=== PATIENT | male | born 1950 | race Caucasian/White ===

== ENCOUNTER → 2019-09-23 17:30 | Outpatient (BNVA) | payer MEDICARE, OTHER, SELFPAY | PROVIDERS: Visit Provider Nurse Practitioner | DX: I10 Essential (primary) hypertension (principal); R53.83 Other fatigue | CPT/HCPCS: 80053; 82607; 83550; 85025 ==

== ENCOUNTER → 2019-09-27 14:56 | Outpatient (BNVA) | payer MEDICARE, OTHER, SELFPAY | PROVIDERS: Visit Provider Nurse Practitioner | DX: D64.9 Anemia, unspecified (principal) | CPT/HCPCS: 82270 ==

== ENCOUNTER 2019-10-18 08:53 | Outpatient (CLI) | payer MEDICARE, OTHER, SELFPAY ==
--- NOTE | 2019-10-18 18:53 | ONC CON_ITS ---
Dr. George New Patient Note Patient: Christiano Swartz Unit #: [id number]: 1950 Dicatated By: Christiano George M.D.Date of Visit: Oct 18, 2019 Onc MED New Patient/Consult Referring Physician: Zechariah Jara Chief Complaint: Anemia. History of Present Illness: This is a 69 year-old man with iron deficiency anemia. This patient has multiple medical illnesses including hypertension, Graves' disease, Crohn's disease, irritable bowel syndrome, and chronic migraine. He has had most of his medical care with physicians in [place], but that has recently been curtailed due to the coronavirus pandemic. He had seen Gennaro Rosales on 09/23/2019 to establish primary care locally. He reported a 2-week history of increased weakness/fatigue. He was found to be significantly anemic with hemoglobin 9.2 g and hematocrit 29.6%. The red cell indices were hypochromic/microcytic. White blood cell count was normal at 5900 and the platelet count was normal at 254,000. His comprehensive metabolic profile showed mild hyponatremia with sodium 127 mmol/L. Renal function was borderline with BUN 10 and creatinine 1.2 mg/dL. Bilirubin and liver enzymes were normal. The serum iron was low at 12 mcg/dL with transferrin saturation 2.7%. B12 was normal at 610 pg/mL. His stool Hemoccult was negative x 3. He complains that he is weak as I will get out. He has very limited activity. His ECOG score is 3. His appetite has never been great, but his weight is stable. He has not had fever or night sweats. He complains that he feels cold all the time. That is chronic, but worse lately, to the point that he is freezing to . He complains of having very dry mouth, and he drinks a lot of water because of it. He does not complain of cough, shortness of breath, or chest pain. He says he is nauseated all the time. He has just a little heartburn, which he manages with Tums. He complains that his stomachaches. His bowels used to be like water. His stools now fluctuate between semi-moist and rocks. He has not been aware of blood in the stool. He has urinary frequency and nocturia. He currently y is not having any significant joint or bone pain, but he does have a history of back injury and 2 back surgeries. He has migraines constantly, at times severe enough that they put him down. He gets lightheaded if he tries to get up too fast. He says his fingers get numb with cold exposure. He has some mild anxiety, and he has chronic insomnia. Past Medical History: His medical history includes chronic migraine, Crohn's disease, Graves disease, hypertension, and irritable bowel syndrome. Past Surgical History: His surgical/procedural history includes back surgery x 2 and subtotal thyroidectomy and radioactive iodine ablation. Medications: Atenolol 3 Tablet (of 50 mg) Oral daily, Budesonide 3 Capsule (of 3 mg) Capsule Delayed Release Particles Oral daily, Bywzszrrux-VDFG-Mvox-Cod 1 Capsule (of 36-357-58-30 mg) Oral q 4 hours PRN, Cyclobenzaprine HCl 1 Tablet (of 10 mg) Oral t.i.d. PRN, diazePAM 1 Tablet (of 5 mg) Oral t.i.d. PRN, Diphenoxylate-Atropine 1 Tablet (of 2.5-0.025 mg) Oral daily PRN, Enalapril Maleate 1 Tablet (of 20 mg) Oral daily, EQL Fluticasone Propionate 1 [place](s) (of 50 mcg/act) Suspension Nasal daily, HYDROcodone-Acetaminophen 1 Tablet (of 10-325 mg) Oral q 4 hours PRN, hydrOXYzine HCl 1 Tablet (of 25 mg) Oral t.i.d. PRN, predniSONE 1 Tablet (of 10 mg) Oral daily, ProAir HFA 2 Puff(s) (of 108 (90 base) mcg/act) Aerosol, solution Inhalation PRN, sulfaSALAzine 2 Tablet (of 500 mg) Oral daily, SUMAtriptan Succinate 1 Tablet (of 100 mg) Oral daily PRN, tiZANidine HCl 2 Tablet (of 4 mg) Oral four times a day PRN, Zofran ODT 1 Tablet (of 4 mg) Tablet Dispersable Oral q 4 hours Allergies: morphine and Penicillin. Social History: Mr. Swartz is and he is retired. He is a non-smoker. He had heavy alcohol use for period of 4 to 5 years, but he quit drinking more than 30 years ago. Family History: Father with dementia in his early 90s. Mother had diabetes and of heart attack at age 62. Her whole family apparently had heart problems. A brother in his 60s with fast pace dementia . Another brother has coronary artery disease and one has been treated for cardiac arrhythmia. A sister also has heart disease. Another sister is in good health. Review Of Symptoms: Constitutional - His energy level is low and he is mainly sedentary at home. He uses a cane with ambulation. His appetite is poor. His weight is stable. No fever. He has frequent chills. No hot flashes or night sweats. ECOG score is 3, Eyes - No change in vision, ENMT - No hearing loss or tinnitus. He has chronic sinusitis. No mouth sores. No sore throat or difficulty swallowing, Hematologic/Lymphatic - No abnormal bruising or bleeding, Respiratory - No shortness of breath. No cough. No pleuritic pain or hemoptysis, Cardiovascular - No angina pain. No palpitations, Gastrointestinal - She has constant nausea. No vomiting. He has occasional heartburn that is well controlled with over the counter Tums. He has intermitten diarrhea and constipation. He has Crohn's disease and IBS. No blood in the stool or black stools. He has constant abdominal pain, Genitourinary (M) - No dysuria or hematuria. He has urinary frequency and nocturia. No urgency or incontinence, Musculoskeletal - No joint or bone pain, Integumentary - No skin complications, Neurologic - He has chronic migraines which he manages with hydrocodone and Butalbital/APAP/Caffeine. He gets dizzy with positional changes. He has neuropathy that is worse when he gets cold, Psychiatric - He has mild anxiety. No depression. He has chronic insomnia. Vital Signs: Performed on Oct 18, 2019 09:35: 4, 22.35, 1.63 sq.m, 64.00 in, 97 %, 70 /min, 18 /min, 194/103 mm(hg) (HIGH), 98.1 F (LOW), and 130.2 lbs (HIGH). Physical Examination: Constitutional - He appears somewhat weak generally, but not acutely ill, Eyes - Sclerae nonicteric. Conjunctivae clear, ENMT - Mouth is very dry. There are no lesions noted in the oral cavity, Neck - No mass or thyromegaly, Hematologic/Lymphatic - No cervical, clavicular, or axillary adenopathy, Respiratory - Lungs are clear with good air movement bilaterally, Cardiovascular - Heart rhythm is regular. There is no murmur, gallop, or rub noted, Abdomen - Soft and non-tender. Liver and spleen are not enlarged. There is no abdominal mass or ascites noted and there is no inguinal adenopathy, Back/Spine - No spine or CVA tenderness noted, Extremities - No edema. Pedal pulses are palpable bilaterally, Integumentary - No rashes. No suspicious skin lesions noted, Neurologic - No focal neurologic deficits noted. Impression: 1. Patient with iron deficiency anemia. Etiology is uncertain, but it appears to be due to inadequate oral iron absorption. GI blood loss is not completely excluded, but it does appear to less likely. 2. He has underlying Crohn's disease and irritable bowel syndrome. 3. He also had mild hyponatremia, possibly dilutional. 4. He has chronic dry mouth. In the setting of other autoimmune disease, I am wondering if he may not have Sjogren's syndrome. His other medical illnesses include: 5. Hypertension. 6. Graves disease. 7. Chronic migraine. Plan: He clearly has iron deficiency anemia. At least some component is likely to be due to inadequate oral iron absorption. He has underlying Crohn's disease and irritable bowel syndrome and he has significant ongoing GI symptoms. While it is unlikely that he will either tolerate or respond to oral iron, he will need to be given a trial of oral iron supplementation prior to any parenteral iron replacement. As such, he will start ferrous sulfate 325 mg daily together with vitamin C. He will tentatively be scheduled for a follow-up visit and repeat CBC and serum iron studies in 1 month. If he does not tolerate the ferrous sulfate or if he does not have adequate response, I will then proceed to parenteral iron replacement with Injectafer. Signed By: Christiano George M.D. <<Signature on File>>
== END 2019-10-18 08:54 | disposition home or self-care (01) ==
PROVIDERS: PCP Nurse Practitioner; Visit Provider Internal Medicine Medical Oncology
DX: D50.9 Iron deficiency anemia, unspecified (principal); K50.90 Crohn's disease, unspecified, without complications; K58.9 Irritable bowel syndrome, unspecified; E87.1 Hypo-osmolality and hyponatremia; R68.2 Dry mouth, unspecified; I10 Essential (primary) hypertension; E05.00 Thyrotoxicosis with diffuse goiter without thyrotoxic crisis or storm; G43.709 Chronic migraine without aura, not intractable, without status migrainosus
CPT/HCPCS: 99204

== ENCOUNTER 2019-10-28 01:05 | Observation (INO) | payer MEDICARE, OTHER, SELFPAY ==
[2019-10-28] VITALS (8 sets, daily range): BP systolic 128–209; BP diastolic 66–117; PULSE 53–74; RESP 16–18; TEMP 36.8–37.1; O2SAT 96–100; BMI 20.5
--- NOTE | 2019-10-28 01:18 | W.ED.EXTPRO ---
HPI - Extremity Problem General: Chief complaint: Extremity Injury, Lower Stated complaint: leg pain Time Seen by Provider: 10/28/19 01:14 History of Present Illness: HPI Narrative: Patient is a 69-year-old male who comes to the ED with bilateral leg pain. Patient has a past medical history of Graves' disease, Crohn's disease, asthma, hypertension and migraines. Patient says that pain started over a week ago. He describes pain as constant. Most of his pain is in the left leg. Location of pain starts in the knees and then shoots down into the foot. He has had trouble sleeping for the last 4 nights because of this pain. He currently rates the pain about a 4 out of 10. Patient takes Fioricet for his headaches and took a dose of that tonight to try to help with leg pain. Left leg pain improved temporarily with hot bath. Denies any swelling or erythema in the legs. Patient did say that he has been told for the last 3 weeks that he has low sodium, anemia and low iron. Patient said that he has been eating a lot of high sodium foods recently due to a concern of his low sodium lab value. Associated symptoms: Deny chest pain, fever(s) or rash Review of Systems Const: Reports: fatigue; Denies: fever or chills Eyes: Denies: change in vision or eye discomfort ENMT: Denies: throat pain, painful swallowing, nasal discharge or nasal congestion Card: Denies: chest pain, palpitations, edema, swelling of feet/ankles, shortness of breath on exertion or shortness of breath when lying down Resp: Denies: shortness of breath, productive cough or non-productive cough GI: Denies: abdominal pain, nausea, vomiting, diarrhea, constipation or blood in stool : Denies: flank pain, difficulty urinating, painful urination or blood in urine Musc: Reports: extremity pain (bilateral lower extremity aching); Denies: neck pain, back pain or extremity swelling Skin/Breast: Denies: rash or new lesion Neuro: Denies: headache, numbness in extremities or weakness in extremities PFS ED PFSH: Medical History Ambulates with cane Asthma Chronic allergic rhinitis Chronic back pain Crohn's disease Graves disease Hypertension Migraine Surgical History History of back surgery x 2 History of colonoscopy 2017 History of foot surgery left History of thyroid surgery partical thyroidectomy Family History Father Dementia Brother Dementia History of heart attack Stroke Family/Other History of heart attack Heart disease Sister History of heart attack Stroke Denies family history of Cancer Social History (Updated 10/28/19 @ 03:36 by Talita Haywood MD) Smoking and tobacco status: never smoked Second hand smoke exposure: No Smoking risk assessment/counseling performed?: No Alcohol intake: former Former alcohol use details: For 4 to 5 years he was a heavy alcohol abuser quit 30 years ago Desire information about alcohol rehabilitation?: No Counseling given: No Desire information about substance/drug rehabilitation?: No Counseling given: No Adopted: No Caregiver/support person: No Lives independently: Yes Household members: spouse Housing: House Marital status: Number of children: 0 service: No Current occupational status: retired History of recent travel: No Current gender identity: Male Physical Exam Const: COMMON NORMALS: no apparent distress, oriented x3 and alert GENERAL APPEARANCE: cooperative and comfortable HENMT: COMMON NORMALS: normocephalic HEAD & SCALP: normocephalic MOUTH: oral and palatal mucosa normal THROAT: posterior oropharynx normal and uvula midline Eye: COMMON NORMALS: PERRL PUPIL: Yes PERRL Neck/C-Spine: COMMON NORMALS: supple GENERAL: Yes normal visual inspection Resp: COMMON NORMALS: normal respiratory effort, no retractions, no use of accessory muscles and clear to auscultation bilaterally AUSCULTATION: clear to auscultation bilaterally Cardio: COMMON NORMALS: regular rate, regular rhythm, S1 normal heart sound, S2 normal heart sound, no gallops, no clicks, no murmurs and peripheral pulses 2+ throughout RATE: regular rate RHYTHM: regular rhythm HEART SOUNDS: S1 normal and S2 normal PERIPHERAL PULSES: pulses 2+ throughout GI: COMMON NORMALS: normal to inspection, nondistended, normoactive bowel sounds, soft to palpation, non-tender and no masses PALPATION: Yes soft : COMMON NORMALS: Yes no CVA tenderness BLADDER/KIDNEY EXAM: Yes no CVA tenderness Back/Pelvis: COMMON NORMALS: no CVA tenderness Extremity: COMMON NORMALS: normal to inspection and no pedal edema GENERAL: Yes calf tenderness (mild in left leg) LEFT LOWER EXTREMITY: Yes lower leg Left lower leg: Yes inspection (normal, no swelling), Yes palpation (mild tenderness when squeezing left calf) and Yes neurovascular exam (intact) Neuro: COMMON NORMALS: oriented x3 and moves all extremities SENSORIUM/ORIENTATION: Yes alert Skin: COMMON NORMALS: no rashes or lesions noted GENERAL SKIN EXAM: no rashes or lesions noted and dry skin Course Vital Signs: Vital signs: Vital Signs Temperature 98.2 F 10/28/19 01:13 Pulse Rate 74 10/28/19 01:21 Respiratory Rate 16 10/28/19 01:13 Blood Pressure 209/117 10/28/19 01:13 Pulse Oximetry 100 10/28/19 01:13 MDM - Extremity (Nontraumatic) MDM Narrative: Medical decision making narrative: Patient is a 69-year-old male who comes to the ED with chronic leg pain. Patient's blood pressure on arrival was 209/117. Ultrasound venous duplex of left lower extremity showed no blood clots or DVTs. Hemoglobin was 10.6 and sodium was 123. I discussed patient case with Dr. Acosta and he had me call the [facility] [place]. I told the hospitalist that patient has hyponatremia and has hypertensive. Hospitalist agreed to put patient on observation. Dr. Acosta will be taking over care and placing all the admit orders for patient. Patient understood and agreed with plan. Lab Data: Attestation: I reviewed the patient's lab results. Labs: Lab Results 10/28/19 10/28/19 Range/Units 02:45 02:45 WBC 4.9 (4.0-10.0) 10^3/ uL RBC 4.76 (4.1-5.3) 10^6/u L Hgb 10.6 L (11.7-16.6) g/dL Hct 36.9 L (42.0-52.0) % MCV 77.5 L (80-94) fL MCH 22.3 L (28.0-34.0) pg MCHC 28.7 L (30.0-36.0) g/dL RDW 16.7 H (12.1-15.1) % Plt Count 184 (130-400) 10^3/c mm MPV 9.3 (7.4-10.4) fL Neut % (Auto) 50.8 % Lymph % (Auto) 30.2 % Ray % (Auto) 14.8 % Eos % (Auto) 2.6 % Baso % (Auto) 1.4 % Neut # (Auto) 2.5 (1.8-7.7) 10^3/u L Lymph # (Auto) 1.5 (0.8-4.8) 10^3/u L Ray # (Auto) 0.7 (0.2-0.9) 10^3/u L Eos # (Auto) 0.1 (0.0-0.8) 10^3/u L Baso # (Auto) 0.1 (0.0-0.1) 10^3/u L Nucleated RBC % (a uto) 0 % Nucleated RBCs # 0.0 /100WBC Sodium 123 L (136-145) mmol/L Potassium 4.3 (3.5-5.1) mmol/L Chloride 87 L (98-107) mmol/L Carbon Dioxide 25 (22-29) mmol/L Anion Gap 15.3 (5-19) BUN 10 (8-23) mg/dL Creatinine 1.1 (0.7-1.2) mg/dL GFR Calculation 66.8 L (90-130) mL/min Glucose 94 (65-115) mg/dL Calculated Osmolal ity 252 L (285-295) mOsm/k g Calcium 9.4 (8.5-10.5) mg/dL Total Bilirubin 0.2 (0.15-1.2) mg/dL AST 35 (0-40) U/L ALT 22 (0-41) U/L Alkaline Phosphata se 56 (40-130) IU/L Total Protein 7.0 (6.6-8.7) g/dL Albumin 4.5 (3.5-5.2) g/dL Globulin 2.5 (1.3-4.6) g/dL Imaging Data^: US Vascular: Attestation: I personally reviewed and interpreted this imaging study as follows: Radiologist's impression: US venous duplex of left lower extremity?prelim report showed no DVTs or blood clots seen. Discharge Plan Discharge Clinical Impression: Hyponatremia Condition: Stable Prescriptions: No Action budesonide 3 mg capsule,delayed,extend.release PO RF: 0 hydroxyzine HCl 25 mg tablet PO RF: 0 tnzwwsakps-rfwmsvgjxl-qzo-cod 07-659-06-30 mg capsule PO RF: 0 prednisone 10 mg tablet 10 mg PO DAILY RF: 0 diazepam 5 mg tablet PO RF: 0 atenolol 50 mg tablet PO RF: 0 fluticasone propionate 50 mcg/actuation spray,suspension INTRANASAL RF: 0 sumatriptan succinate 100 mg tablet PO RF: 0 hydrocodone-acetaminophen 10-325 mg tablet PO PRNRF: 0 sulfasalazine 500 mg tablet PO RF: 0 tizanidine 4 mg tablet PO RF: 0 diphenoxylate-atropine 2.5-0.025 mg tablet 2 tab PO PRNRF: 0 albuterol sulfate [ProAir HFA] 90 mcg/actuation HFA aerosol inhaler 2 puff INHALATION Q4H RF: 0 enalapril maleate 20 mg tablet 20 mg PO DAILY RF: 0 cyclobenzaprine 10 mg tablet 10 mg PO TID PRNRF: 0 triamcinolone acetonide 0.1 % cream 1 applic TOPICAL BID Qty: 80 RF: 0 ondansetron 4 mg tablet,disintegrating 4 mg PO DAILY PRN (Reason: nausea and vomiting) Qty: 30 RF: 0 ferrous sulfate 220 mg (44 mg iron)/5 mL elixir 220 mg PO DAILY Qty: 473 RF: 2 Referrals: Gennaro Rosales FNP-C [Primary Care Provider] - Coding Level of Care Code ED Clinical Dental Technician for Chg Fwd Exam Comprehensive
--- NOTE | 2019-10-28 02:33 | USCV_ITS ---
Christiano Swartz Age: 69 Gender: M : 1950 Exam Date: 10/28/2019 03:01 Ordering Phys: Ricardo West Technologist: Sebastian Tate Exam Location: [facility] – [place] Indication: PAIN AND SWELLING HISTORY: Lower extremity pain. PROCEDURES: Examined were the left greater saphenous, common femoral, femoral, profunda, popliteal, posterior tibial veins, and peroneal trunk.. FINDINGS: All veins examined appear free of thrombus. No filling defects on color Doppler flow analysis. Vein flow and caliber vary with respiration. Increase in venous flow with augmentation. All veins appear compressible.. CONCLUSIONS No evidence of left lower extremity DVT. Rao Horner MD (Electronically Signed) Final Date: 28 Oct 2019 12:39 S
[2019-10-28 03:11] LABS: Alanine Aminotransferase 22 U/L (0-41); Albumin Level 4.5 g/dL (3.5-5.2); Alkaline Phosphatase 56 IU/L (40-130); Anion Gap 15.3 (5-19); Aspartate Amino Transferase 35 U/L (0-40); Basophils # 0.1 10^3/uL (0.0-0.1); Basophils % 1.4 %; Blood Urea Nitrogen 10 mg/dL (8-23); Calcium 9.4 mg/dL (8.5-10.5); Carbon Dioxide 25 mmol/L (22-29); Chloride 87 mmol/L (98-107); Eosinophils # 0.1 10^3/uL (0.0-0.8); Eosinophils % 2.6 %; Globulin 2.5 g/dL (1.3-4.6); Glomerular Filtration Rate 66.8 mL/min (90-130); Glucose 94 mg/dL (65-115); Hematocrit 36.9 % (42.0-52.0); Hemoglobin 10.6 g/dL (11.7-16.6); Lymphocytes # 1.5 10^3/uL (0.8-4.8); Lymphocytes % 30.2 %; Mean Corpuscular HGB Conc 28.7 g/dL (30.0-36.0); Mean Corpuscular Hemoglobin 22.3 pg (28.0-34.0); Mean Corpuscular Volume 77.5 fL (80-94); Mean Platelet Volume 9.3 fL (7.4-10.4); Monocytes # 0.7 10^3/uL (0.2-0.9); Monocytes % 14.8 %; Neutrophils # 2.5 10^3/uL (1.8-7.7); Neutrophils % 50.8 %; Nucleated Red Blood Cells % 0 %; Osmolality Calculated 252 mOsm/kg (285-295); Platelet Count 184 10^3/cmm (130-400); Potassium 4.3 mmol/L (3.5-5.1); Red Blood Count 4.76 10^6/uL (4.1-5.3); Red Cell Distribution Width 16.7 % (12.1-15.1); Sodium 123 mmol/L (136-145); Total Bilirubin 0.2 mg/dL (0.15-1.2); White Blood Count 4.9 10^3/uL (4.0-10.0)
--- NOTE | 2019-10-28 03:18 | ECG_ITS ---
Measurements Intervals [place] Rate: 53 P: 73 CA: 192 QRS: 43 QRSD: 98 T: 14 QT: 446 QTc: 419 SINUS BRADYCARDIA INCOMPLETE RIGHT BUNDLE BRANCH BLOCK NONSPECIFIC T-WAVE ABNORMALITY No previous ECG available for comparison Electronically Signed On 10-28-2019 14:16:37 CDT by Mayi Gama M.D. [email or web address]
--- NOTE | 2019-10-28 03:28 | PM.HP ---
Providers/Chief Complaint Primary Care Provider: AISSATOU Yañez Chief Complaint: leg pain History of Present Illness Christiano Swartz is a 69 year old male who has diagnosis of chronic migraines, irritable bowel syndrome, Crohn's disease, Graves' disease, hypertension coming in with chief complaint of generalized weakness and leg pain. Patient is stating that he has been experiencing lethargy, his appetite has never been great, he tries to drink a lot of water because of dry mouth. He is experiencing metallic taste in his mouth and is stating constant nausea associated with acid reflux. His bowels fluctuate between semisolid to regular. He has not noticed dark-colored stool or hematuria. On occasions he feels extremely cold. He feels extremely tired with little activity. Originally he is from [place] and because of pandemic staying in [place]. For last 3 to 4 days she is also experiencing bilateral leg cramps, his lifestyle is sedentary. He has not noticed any leg swelling. No history of cancer. He has never used thyroid replacement therapy after Graves' disease surgery. His Crohn disease is in remission. He is denying night sweats. Patient is stating that he urinates a lot, feels dry and tries to catch up on his fluid intake. Diagnostics in the ER revealed hyponatremia hypovolemia sodium 123 Iron deficiency anemia Neurologically nonfocal exam I would order chest x-ray, TSH, serum and urine osmolarity, uric acid level, urine sodium level Review of Systems Const: Reports: body aches, fatigue and malaise; Denies: fever, chills or diaphoresis Eyes: Denies: change in vision ENMT: Denies: throat pain Card: Denies: chest pain Resp: Denies: shortness of breath GI: Denies: abdominal pain : Denies: flank pain Musc: Denies: neck pain Skin/Breast: Reports: rash Neuro: Denies: headache Psych: Denies: anxiety Endo: Reports: excessive urination, excessive thirst, tired all the time and cold intolerance Harris/Lymph: Denies: easy bruising All/Imm: Denies: hives Medications/Allergies Home Medications Medication Instructions Recorded Confirmed Last Taken Type albuterol sulfate 90 mcg/actuation 2 puff INHALATION Q4H gm 08/23/19 09/23/19 Unknown History aerosol inhaler atenolol 50 mg tablet mg PO 08/23/19 09/23/19 Unknown History budesonide 3 mg mg PO 08/23/19 09/23/19 Unknown History capsule,delayed,extended release butalbital 50 mg-acetaminophen 325 cap PO 08/23/19 09/23/19 Unknown History mg-caffeine 40 mg-codeine 30 mg cap cyclobenzaprine 10 mg tablet 10 mg PO TID PRN 08/23/19 09/23/19 Unknown History diazepam 5 mg tablet mg PO 08/23/19 09/23/19 Unknown History diphenoxylate-atropine 2.5 2 tab PO PRN tab 08/23/19 09/23/19 Unknown History mg-0.025 mg tablet enalapril maleate 20 mg tablet 20 mg PO DAILY 08/23/19 09/23/19 Unknown History fluticasone propionate 50 INTRANASAL 08/23/19 09/23/19 Unknown History mcg/actuation nasal spray,suspension hydrocodone 10 mg-acetaminophen tab PO PRN 08/23/19 09/23/19 Unknown History 325 mg tablet hydroxyzine HCl 25 mg tablet mg PO 08/23/19 09/23/19 Unknown History prednisone 10 mg tablet 10 mg PO DAILY tab 08/23/19 09/23/19 Unknown History sulfasalazine 500 mg tablet PO 08/23/19 09/23/19 Unknown History sumatriptan succinate 100 mg tablet mg PO 08/23/19 09/23/19 Unknown History tizanidine 4 mg tablet mg PO 08/23/19 09/23/19 Unknown History triamcinolone acetonide 0.1 % 1 applic TOPICAL BID #80 gm 08/23/19 09/23/19 Unknown Rx topical cream ondansetron 4 mg disintegrating 4 mg PO DAILY PRN #30 tab 10/21/19 Unknown Rx tablet ferrous sulfate 220 mg (44 mg 220 mg PO DAILY #473 ml 10/22/19 Unknown Rx iron)/5 mL oral elixir Allergies Allergy/AdvReac Type Severity Reaction Status Date / Time morphine Allergy Unknown Goofy Verified 08/23/19 10:29 Penicillins AdvReac Messes his Verified 08/23/19 10:12 blood up PFSH Acute PFSH: Medical History Ambulates with cane Asthma Chronic allergic rhinitis Chronic back pain Crohn's disease Graves disease Hypertension Migraine Surgical History History of back surgery x 2 History of colonoscopy 2017 History of foot surgery left History of thyroid surgery partical thyroidectomy Family History Father Dementia Brother Dementia History of heart attack Stroke Family/Other History of heart attack Heart disease Sister History of heart attack Stroke Denies family history of Cancer Social History Smoking and tobacco status: never smoked Second hand smoke exposure: No Smoking risk assessment/counseling performed?: No Alcohol intake: former Former alcohol use details: For 4 to 5 years he was a heavy alcohol abuser quit 30 years ago Desire information about alcohol rehabilitation?: No Counseling given: No Desire information about substance/drug rehabilitation?: No Counseling given: No Adopted: No Caregiver/support person: No Lives independently: Yes Household members: spouse Housing: House Marital status: Number of children: 0 service: No Current occupational status: retired History of recent travel: No Current gender identity: Male Vitals/I&O/Wt Last Vital Signs Temp 98.2 F 10/28/19 01:13 Pulse 74 10/28/19 01:21 Resp 16 10/28/19 01:13 BP 209/117 10/28/19 01:13 Pulse Ox 100 10/28/19 01:13 Weight last 48 hrs Weight 54.431 kg Physical Exam Narrative: EXAM NARRATIVE: Head to toe examination Appears more than stated age, very pleasant sitting comfortably in his bed Sys blood pressure 200mmhg EOMI, PERRLA Neurologically nonfocal exam Reflexes are equivocal, no delayed reflexes seen Abdomen soft, nontender, nondistended bowel sound present S1, S2 no tachycardia or heart failure Lungs are clear to auscultation without adventitious sounds No abnormal calf swelling Skin complexion is pallor Pertinent negative No neurological changes No delayed reflexes No nystagmus Data : 10/28/19 02:45 10/28/19 02:45 A&P Assessment and plan (1) Chronic hyponatremia: Status: Acute (2) Activity intolerance related to fatigue: Status: Acute (3) Graves disease: Status: Chronic (4) Crohn's disease: Status: Chronic (5) Hypertension: Status: Chronic Qualifiers: Hypertension type: essential hypertension Qualified Code(s): I10 - Essential (primary) hypertension (6) Migraine: Status: Chronic (7) Iron deficiency anemia: Status: Acute Additional A&P Information Chronic hyponatremia secondary to poor p.o. intake His symptoms include muscle cramps and lethargy We will check TSH, he has history of thyroid surgery for Graves' disease, he has never been on thyroid replacement therapy Clinically he looks dehydrated and malnourished Check urine and serum osmolarity, urine sodium level, uric acid level Target sodium correction in 24-hour 6 mEq, would use normal saline at low rate 50 mL/h Sodium check every 4 hours Obtain chest x-ray, patient is a non-smoker, Chronic identification anemia Currently hemoglobin stable, Continue iron placement therapy No active GI blood loss, hematemesis or hematuria This is most likely related to poor p.o. 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
[2019-10-28] MEDS: sodium chloride 0.9% 1,000 ML 100 ML IV (03:47)
[2019-10-28] MEDS: HYDROcodone-acetaminophen 5-325 mg Tablet 1 TAB PO (03:47)
[2019-10-28 03:50] LABS: Troponin(5th) Baseline 16 ng/mL (0-15)
[2019-10-28] MEDS: hyDRALAzine 20 mg/mL INJ 1 mL 10 MG IVP (04:22)
[2019-10-28 06:00] LABS: Troponin 5 2HR 14.05 ng/mL (0-15)
[2019-10-28 06:01] LABS: Troponin 5 2HR Delta -1.95 ABS# (0-10)
[2019-10-28] MEDS: SUMAtriptan 25 mg Tablet 50 MG PO (06:36)
[2019-10-28] MEDS: enoxaparin 40 mg/0.4 mL Syringe SUBCUT (06:36)
[2019-10-28] MEDS: sodium chloride 0.9% 1,000 ML 50 ML IV (06:39)
--- NOTE | 2019-10-28 07:00 | XR_ITS ---
WS: [id number] XR chest 1V portable [id number] REASON FOR EXAM: Chronic hyponatremia FINDINGS: The heart and mediastinal interfaces are normal. The lung carvajal are well aerated. No pneumonia pulmonary edema pleural effusion. The hilum and apices normal. No osseous abnormalities. XR/XR chest 1V portable [id number] IMPRESSION: Negative chest for active pathology.
[2019-10-28 07:35] LABS: Ketone (Acetest) Serum Negative (Negative)
[2019-10-28 07:58] LABS: Sodium 127 mmol/L (136-145); Thyroid Stimulating Hormone 3.52 uIU/mL (0.27-4.20)
[2019-10-28 08:45] LABS: Urine Random Sodium 82 mmol/L
[2019-10-28 09:55] LABS: Sodium 125 mmol/L (136-145)
[2019-10-28] MEDS: atenolol 50 mg Tablet 150 MG PO (10:19)
--- NOTE | 2019-10-28 11:17 | PC.CHAP ---
Pastoral Care Encounter/Spiritual Assessment Type of Contact [] Declined unemployment claims adjudicator visit [] Patient/Family/Request visit [] Outpatient visit [] Follow-up visit [] Physician referral [] Code/Alert [x] Routine visit [] Staff referral [] Actively dying [] Patient sleeping [] Family support [] [] Out of room [] Palliative care [] [] Receiving care in room [] Pre-surgical visit [] Trauma [] Long length of stay [] ICU visit [] Other: Relational/Emotional Strength [x] Patient feels connected with others/family/visitors/staff [] Distress [] Loneliness/isolation [] Abandonment Spirituality of Patient [x] Person of Luz [x] Attends Sikhism of their Luz [x] Believes in Prayer [x] Reads Bible or Evangelical materials [] There are Spiritual issues to be addressed Web Content Coordinator Interventions [x] Prayer [x] Active listening [x] Non-anxious presence [x] Spiritual/emotional support [] Crisis/trauma care [] Spiritual counseling [] Bereavement support [] Provided bereavement packet [] Provided Bible/devotional materials [] Provided toy/stuffed animal, coloring book to patient or family member [] Provided Communion [] Anointing/[place] [] Salvation [x] Completed spiritual assessment [] Other: Impact on Illness or Injury [] Angry [] Fearful [] Anxious [] Often cries [] Exhaustion [] Unable to work [] Unable to attend adventist [] Unable to walk/stand [] Unable to read [] Unable to drive [] Unable to eat/drink [] Unable to sleep [] Unable to be with family [] Patient intubated [x] Other: n./a Summary Time spent with patient 15 minutes
[2019-10-28 14:23] LABS: Sodium 123 mmol/L (136-145)
--- NOTE | 2019-10-28 14:55 | CT_ITS ---
WS: [id number] CT HEAD TECHNIQUE: Noncontrast CT of the head obtained from the skullbase to the vertex. CLINICAL INFORMATION: intractable headache COMPARISON: None. DLP: 872.[address] scans at [facility] use at least one of these dose optimization techniques: automat ed exposure control; mA and/or kV adjustment per patient size (includes targeted exams where dose is matched to clinical indication); or iterative reconstruction. FINDINGS: No evidence of intracranial hemorrhage or mass effect. Ventricular system and basal cisterns are kemp nt. Moderate small vessel changes with moderate parenchymal volume loss. Chronic lacunar infarct in t he left frontal periventricular white matter. Intracranial vascular calcification. Paranasal sinuses and mastoid air cells are well aerated. Normal visualized soft tissues. CT/CT head wo con* [id number] IMPRESSION: 1. No evidence of intracranial hemorrhage or mass effect. 2. Moderate small vessel changes with moderate parenchymal volume loss. 3. No acute intracranial findings.
[2019-10-28] MEDS: HYDROcodone-acetaminophen 10-325 mg Tablet 1 TAB PO ×2 (15:06→21:54)
--- NOTE | 2019-10-28 15:58 | PM.PN ---
Subjective Subjective: Interval history: continues c/o headache, Na improving slowly Medications: Reviewed: Yes Vitals/I&O/Wt Last Vital Signs Temp 98.6 F 10/28/19 11:09 Pulse 65 10/28/19 11:09 Resp 16 10/28/19 11:09 BP 173/85 10/28/19 11:09 Pulse Ox 98 10/28/19 11:09 10/28/19 10/28/19 10/28/19 06:59 14:59 22:59 Intake Total 240 / 240 Output Total 350 / 350 Balance -110 / -110 Weight last 48 hrs Weight 54.431 kg Physical Exam Narrative: EXAM NARRATIVE: GEN: Awake, alert and oriented, no acute distress CVS: S1S2 N RS: CTA B/L Abd: Soft, nt/nd , bs+ FORENSIC EXAMINER: no focal neuro deficits Data : 10/28/19 02:45 10/29/19 05:30 A&P Assessment and plan (1) Chronic hyponatremia: Status: Acute (2) Activity intolerance related to fatigue: Status: Acute (3) Graves disease: Status: Chronic (4) Crohn's disease: Status: Chronic (5) Hypertension: Status: Chronic Qualifiers: Hypertension type: essential hypertension Qualified Code(s): I10 - Essential (primary) hypertension (6) Migraine: Status: Chronic (7) Iron deficiency anemia: Status: Acute Additional A&P Information Chronic hyponatremia secondary to poor p.o. intake His symptoms include muscle cramps and lethargy TSH WNL Clinically he looks dehydrated and malnourished Continue normal saline at low rate 50 mL/h Sodium check every 4 hours Ongoing headache with hyponatremia: obtain Ct head to rr/o central causes such as masses etc Chronic iron deficiency anemia Currently hemoglobin stable, Continue iron placement therapy No active GI blood loss, hematemesis or hematuria This is most likely related to poor p.o. intake No history of GI cancer, Crohn's disease: In remission Hypertension: Current systolic blood pressures in 200s, secondary to bradycardia would avoid beta-kallie and use hydralazine at this point Full code Regular diet DVT prophylaxis: Lovenox Attestations Medical Necessity Statement*: ongoing intractable headache, slowly improving Na Coding Level of Care Code Acute Sampling Theory Teacher for Chg Fwd Diagnoses Chronic hyponatremia E87.1 Activity intolerance related to fatigue R53.83 Graves disease E05.00 Crohn's disease K50.90 Hypertension I10 Hypertension type: essential hypertension Migraine G43.909 Iron deficiency anemia D50.9
[2019-10-28 17:41] LABS: Sodium 122 mmol/L (136-145)
[2019-10-29] VITALS (10 sets, daily range): BP systolic 148–200; BP diastolic 72–96; PULSE 52–65; RESP 17–18; TEMP 36.5–37.3; O2SAT 97–99
[2019-10-29] MEDS: sodium chloride 0.9% 1,000 ML 50 ML IV (02:09)
[2019-10-29] MEDS: HYDROcodone-acetaminophen 10-325 mg Tablet 1 TAB PO ×2 (05:29→09:39)
[2019-10-29] MEDS: enoxaparin 40 mg/0.4 mL Syringe SUBCUT (05:29)
[2019-10-29 06:09] LABS: Anion Gap 14.9 (5-19); Blood Urea Nitrogen 11 mg/dL (8-23); Calcium 7.7 mg/dL (8.5-10.5); Carbon Dioxide 22 mmol/L (22-29); Chloride 94 mmol/L (98-107); Glomerular Filtration Rate 74.5 mL/min (90-130); Glucose 86 mg/dL (65-115); Osmolality Calculated 259 mOsm/kg (285-295); Potassium 3.9 mmol/L (3.5-5.1); Sodium 127 mmol/L (136-145)
[2019-10-29] MEDS: atenolol 50 mg Tablet 150 MG PO (09:41)
[2019-10-29] MEDS: SUMAtriptan 25 mg Tablet 50 MG PO (09:50)
--- NOTE | 2019-10-29 10:12 | PC.CHAP ---
Pastoral Care Encounter/Spiritual Assessment Type of Contact [] Declined carbonating stone cleaner visit [] Patient/Family/Request visit [] Outpatient visit [] Follow-up visit [] Physician referral [] Code/Alert [x] Routine visit [] Staff referral [] Actively dying [] Patient sleeping [] Family support [] [] Out of room [] Palliative care [] [] Receiving care in room [] Pre-surgical visit [] Trauma [] Long length of stay [] ICU visit [] Other: Relational/Emotional Strength [] Patient feels connected with others/family/visitors/staff [] Distress [] Loneliness/isolation [] Abandonment Spirituality of Patient [] Person of Luz [] Attends Buddhism of their Luz [] Believes in Prayer [] Reads Bible or Anabaptism materials [] There are Spiritual issues to be addressed Principal Secretary Interventions [x] Prayer [] Active listening [] Non-anxious presence [] Spiritual/emotional support [] Crisis/trauma care [] Spiritual counseling [] Bereavement support [] Provided bereavement packet [] Provided Bible/devotional materials [] Provided toy/stuffed animal, coloring book to patient or family member [] Provided Communion [] Anointing/[place] [] Salvation [x] Completed spiritual assessment [] Other: Impact on Illness or Injury [] Angry [] Fearful [] Anxious [] Often cries [] Exhaustion [] Unable to work [] Unable to attend baptism [] Unable to walk/stand [] Unable to read [] Unable to drive [] Unable to eat/drink [] Unable to sleep [] Unable to be with family [] Patient intubated [] Other: Summary Patient receiving iv of sodium (his was low) has a migraine, receiving meds every 6 hours, home meds are taken every 4 hours. Time spent with patient 15min
[2019-10-29 12:25] LABS: Osmolality Urine 305 mOsm/kg (50-1200)
--- NOTE | 2019-10-29 15:51 | PM.DCS ---
Discharge Providers Date of Admission: 10/28/19 04:15 Date of Discharge: October 29, 2019 Attending Provider at Admission: Talita Haywood MD Attending Provider at Discharge: Elysia Smith MD Primary Care Provider: AISSATOU Yañez Diagnoses at Discharge Discharge Diagnosis (1) Chronic hyponatremia: Status: Acute (2) Activity intolerance related to fatigue: Status: Acute (3) Graves disease: Status: Chronic (4) Crohn's disease: Status: Chronic (5) Hypertension: Status: Chronic Qualifiers: Hypertension type: essential hypertension Qualified Code(s): I10 - Essential (primary) hypertension (6) Migraine: Status: Chronic (7) Iron deficiency anemia: Status: Acute Reason for Visit Reason for Visit: Reason For Visit: leg pain Discharge Data Data Completed and Pending: Completed Studies During Hospitalization Category Date Time Status CT head wo con* 7 0450 Routine Cat Scan 10/28/19 14:55 Completed XR chest 1V dexter ble [id number] Routine Exams 10/28/19 07:00 Completed US venous duplex lower extremity LT [CV venous duplex Ultrasound 10/28/19 02:33 [place] [id number]] Urge nt Labs from last 24 hours 10/29/19 10/28/19 10/28/19 05:30 17:08 07:38 Sodium 127 L 122 L Potassium 3.9 Chloride 94 L Carbon Dioxide 22 Anion Gap 14.9 BUN 11 Creatinine 1.0 GFR Calculation 74.5 L Glucose 86 Calculated Osmolal ity 259 L Calcium 7.7 L Urine Osmolality 305 Vitals: Last Vital Signs Temp 99.1 F 10/29/19 15:39 Pulse 64 10/29/19 15:39 Resp 17 10/29/19 15:39 BP 196/82 10/29/19 15:39 Pulse Ox 98 10/29/19 15:39 Discharge Plan Discharge Patient Disposition: Home, Self-Care Condition: Stable Prescriptions: New amlodipine 5 mg tablet 5 mg PO DAILY Qty: 30 RF: 1 Continued budesonide 3 mg capsule,delayed,extend.release PO RF: 0 hydroxyzine HCl 25 mg tablet PO RF: 0 pwmrzuocfq-mocasrbjcm-bmp-cod [id number] mg capsule 1 cap PO Q4-5H PRN (Reason: Migraine Headache) RF: 0 prednisone 10 mg tablet 10 mg PO DAILY RF: 0 diazepam 5 mg tablet 5 mg PO TID PRN (Reason: Anxiety) RF: 0 atenolol 50 mg tablet 100 mg PO DAILY RF: 0 fluticasone propionate 50 mcg/actuation spray,suspension 1 spray INTRANASAL DAILY RF: 0 sumatriptan succinate 100 mg tablet 100 mg PO DAILY RF: 0 hydrocodone-acetaminophen 10-325 mg tablet 1 tab PO QID PRN (Reason: Migraine Headache) RF: 0 sulfasalazine 500 mg tablet PO RF: 0 tizanidine 4 mg tablet 8 mg PO QID PRN (Reason: Muscle Spasm) RF: 0 diphenoxylate-atropine 2.5-0.025 mg tablet 2 tab PO QID PRN (Reason: Diarrhea) RF: 0 albuterol sulfate [ProAir HFA] 90 mcg/actuation HFA aerosol inhaler 2 puff INHALATION Q4H RF: 0 enalapril maleate 20 mg tablet 20 mg PO DAILY RF: 0 cyclobenzaprine 10 mg tablet 10 mg PO TID PRN (Reason: Muscle Spasm) RF: 0 triamcinolone acetonide 0.1 % cream 1 applic TOPICAL BID Qty: 80 RF: 0 ondansetron 4 mg tablet,disintegrating 4 mg PO DAILY PRN (Reason: nausea and vomiting) Qty: 30 RF: 0 ferrous sulfate 220 mg (44 mg iron)/5 mL elixir 220 mg PO DAILY Qty: 473 RF: 2 Discharge Orders: Discharge Order (Routine); Ordered 10/29/19 Ordered By: Elysia Smith Referrals: Gennaro Rosales, TUBE INSPECTOR-C [Primary Care Provider] - 2 weeks Discharge Diet: Usual diet Discharge Activity: Resume usual activity Activity Restrictions/Additional Instructions: restrict FREE fluid to 1.5-2L per day. if drinking more than this, try pedialyte or oral rehydration fluids Discharge Attestations Time Spent in Discharge Care*: less than 30 min Quality Metrics Clinical Quality Measures During this hospital stay, did patient experience: None Coding Level of Care Code Acute Brand Sales Consultant for Chg Fwd Diagnoses Chronic hyponatremia E87.1 Activity intolerance related to fatigue R53.83 Graves disease E05.00 Crohn's disease K50.90 Hypertension I10 Hypertension type: essential hypertension Migraine G43.909 Iron deficiency anemia D50.9
[2019-10-29] MEDS: hyDRALAzine 10 mg Tablet 5 MG PO (17:13)
== END 2019-10-29 18:01 | disposition home or self-care (01) ==
LOC: ER 03:47 → MEDSURG 05:14
PROVIDERS: Admitting Provider Internal Medicine; Emergency Provider Physician Assistant; PCP Nurse Practitioner; Visit Provider Student in an Organized Health Care Education/Training Program
DX: E87.1 Hypo-osmolality and hyponatremia (principal); R53.83 Other fatigue; E05.00 Thyrotoxicosis with diffuse goiter without thyrotoxic crisis or storm; K50.90 Crohn's disease, unspecified, without complications; I10 Essential (primary) hypertension; G43.909 Migraine, unspecified, not intractable, without status migrainosus; D50.9 Iron deficiency anemia, unspecified; M79.605 Pain in left leg
CPT/HCPCS: 12345; 36415; 70450; 71045; 80048; 80053; 82009; 83935; 84295; 84300; 84443; 84484; 84550; 85025; 93005; 93971; 96360; 96361; 96372; 96374; 96375; 99283; 99285; G0378; J0360; J1650; J3490; J7030

== ENCOUNTER 2019-11-23 14:33 | Outpatient (CLI) | payer MEDICARE, OTHER, SELFPAY ==
[2019-11-23 15:22] LABS: Basophils # 0.1 10^3/uL (0.0-0.1); Basophils % 0.8 %; Eosinophils % 0.2 %; Hematocrit 33.5 % (42.0-52.0); Hemoglobin 10.2 g/dL (11.7-16.6); Lymphocytes # 1.2 10^3/uL (0.8-4.8); Lymphocytes % 19.8 %; Mean Corpuscular HGB Conc 30.4 g/dL (30.0-36.0); Mean Corpuscular Hemoglobin 23.1 pg (28.0-34.0); Mean Platelet Volume 9.2 fL (7.4-10.4); Monocytes # 0.7 10^3/uL (0.2-0.9); Monocytes % 11.2 %; Neutrophils # 4.2 10^3/uL (1.8-7.7); Neutrophils % 67.8 %; Nucleated Red Blood Cells % 0 %; Platelet Count 292 10^3/cmm (130-400); Red Blood Count 4.41 10^6/uL (4.1-5.3); Red Cell Distribution Width 19.1 % (12.1-15.1); White Blood Count 6.3 10^3/uL (4.0-10.0)
[2019-11-23 15:46] LABS: Ferritin 11 ng/mL (30-400); Iron 33 ug/dL (59-158); Percent Saturation 7.7 % (20-50); Total Iron Binding Capacity 426 mcg/dl; Unsaturated Iron Binding 393 ug/dL (112-347)
[2019-11-23] MEDS: sodium chloride 0.9% (100 ml) 100 ML 400 ML (16:00)
[2019-11-23] MEDS: ferric carboxy (IVPB) 750 MG in sodium chloride 0.9% (100 ml) 100 ML 460 MG IV (16:20)
[2019-11-23 16:22] LABS: Alanine Aminotransferase 32 U/L (0-41); Albumin Level 4.7 g/dL (3.5-5.2); Alkaline Phosphatase 52 IU/L (40-130); Anion Gap 15.6 (5-19); Aspartate Amino Transferase 35 U/L (0-40); Blood Urea Nitrogen 10 mg/dL (8-23); Calcium 9.2 mg/dL (8.5-10.5); Carbon Dioxide 27 mmol/L (22-29); Chloride 91 mmol/L (98-107); Globulin 2.4 g/dL (1.3-4.6); Glomerular Filtration Rate 60.4 mL/min (90-130); Glucose 86 mg/dL (65-115); Osmolality Calculated 263 mOsm/kg (285-295); Potassium 4.6 mmol/L (3.5-5.1); Sodium 129 mmol/L (136-145); Total Bilirubin 0.3 mg/dL (0.15-1.2); Total Protein 7.1 g/dL (6.6-8.7)
[2019-11-23 17:46] LABS: Erythrocyte Sedimentation Rate 9 mm/hr (0-10)
--- NOTE | 2019-11-23 19:52 | ONC FU_ITS ---
Dr. George Patient Follow-Up Note Patient: Christiano Swartz Unit #: [id number]: 1950 Dicatated By: Christiano George M.D.Date of Visit:Nov 23, 2019 Onc Med Follow-up/Prog Note Chief Complaint: Anemia. History of Present Illness: This is a 69 year-old man with iron deficiency anemia. This patient has multiple medical illnesses including hypertension, Graves' disease, Crohn's disease, irritable bowel syndrome, and chronic migraine. He has had most of his medical care with physicians in [place], but that has recently been curtailed due to the coronavirus pandemic. He had seen Maurisioale Bobby on 09/23/2019 to establish primary care locally. He reported a 2-week history of increased weakness/fatigue. He was found to be significantly anemic with hemoglobin 9.2 g and hematocrit 29.6%. The red cell indices were hypochromic/microcytic. White blood cell count was normal at 5900 and the platelet count was normal at 254,000. His comprehensive metabolic profile showed mild hyponatremia with sodium 127 mmol/L. Renal function was borderline with BUN 10 and creatinine 1.2 mg/dL. Bilirubin and liver enzymes were normal. The serum iron was low at 12 mcg/dL with transferrin saturation 2.7%. B12 was normal at 610 pg/mL. His stool Hemoccult was negative x 3. I had initially seen him on 10/18/2019. With his laboratory studies clearly consistent with iron deficiency, he initially was recommended to just have a trial of oral iron supplementation. He is seen for a follow-up visit. He indicates he had first tried a liquid iron preparation, which caused significant diarrhea. He then changed to ferrous sulfate, which he has been able to tolerate with acceptable toxicity. He says he is doing better, as he has had some improvement in his energy. His activity, though, is still limited. ECOG score is 2. He has good appetite. He has not had fever. He complains that he sweats at night but at the same time he feels cold, and he is freezing to . He has no shortness of breath, cough, or chest pain. He is having some nausea and he has a little acid reflux. He says his bowels are okay now. He has frequent urination. He has no significant joint or bone pain. He has had migraine headaches for years. He has no focal neurologic symptoms. Medications: Atenolol 3 Tablet (of 50 mg) Oral daily, Budesonide 3 Capsule (of 3 mg) Capsule Delayed Release Particles Oral daily, [id number]-IASS-Xwdr-Cod 1 Capsule (of 23-653-29-30 mg) Oral q 4 hours PRN, Cyclobenzaprine HCl 1 Tablet (of 10 mg) Oral t.i.d. PRN, diazePAM 1 Tablet (of 5 mg) Oral t.i.d. PRN, Diphenoxylate-Atropine 1 Tablet (of 2.5-0.025 mg) Oral daily PRN, Enalapril Maleate 1 Tablet (of 20 mg) Oral daily PRN, EQL Fluticasone Propionate 1 [place](s) (of 50 mcg/act) Suspension Nasal daily, HYDROcodone-Acetaminophen 1 Tablet (of 10-325 mg) Oral q 4 hours PRN, hydrOXYzine HCl 1 Tablet (of 25 mg) Oral t.i.d. PRN, predniSONE 1 Tablet (of 10 mg) Oral daily, ProAir HFA 2 Puff(s) (of 108 (90 base) mcg/act) Aerosol, solution Inhalation PRN, sulfaSALAzine 2 Tablet (of 500 mg) Oral daily, SUMAtriptan Succinate 1 Tablet (of 100 mg) Oral daily PRN, tiZANidine HCl 2 Tablet (of 4 mg) Oral four times a day PRN, Zofran ODT 1 Tablet (of 4 mg) Tablet Dispersable Oral q 4 hours Allergies: morphine and Penicillin. Review of Systems: Constitutional - He overall feels a little better. He has more energy and is able to do more tasks than previously. His acitivity, though, is still limited. His appetite is good and weight is stable. No fever. He has sweats at night but complains that he is freezing to . ECOG score is 2, ENMT - No sinus congestion/drainage. No mouth sores. No sore throat or difficulty swallowing, Hematologic/Lymphatic - He is having some bruising, Respiratory - No shortness of breath. No cough. No pleuritic pain or hemoptysis, Cardiovascular - No angina pain. No palpitations, Gastrointestinal - He has some nausea but no vomiting. He has a little acid reflux. He had diarrhea on the liquid iron. His bowels are OK now. No blood in the stool or black stools, Genitourinary (M) - No dysuria or hematuria. He has urinary frequency. No urgency or incontinence, Musculoskeletal - No joint or bone pain, Integumentary - No skin complications, Neurologic - He has frequent headaches. No dizziness. No numbness or tingling. No other focal neurologic symptoms, Psychiatric - No anxiety or depression. He has difficulty sleeping. Vital Signs: Performed on Nov 23, 2019 15:48 Height - 64.00 in Weight - 129.2 lbs (LOW) BSA - 1.62 sq.m BMI - 22.18 Temperature - 98.6 F Pulse - 60 /min Respiration - 16 /min BP - 190/95 mm(hg) (HIGH) O2 Sat - 100 % Pain - 0 Physical Examination: Constitutional - He appears somewhat weak generally, Eyes - Sclerae nonicteric. Conjunctivae clear, ENMT - No lesions noted in the oral cavity, Hematologic/Lymphatic - No cervical, clavicular, or axillary adenopathy, Respiratory - Lungs sound clear. He has good air movement bilaterally, Cardiovascular - Heart rhythm is regular. There is no murmur, gallop, or rub noted, Abdomen - Soft. Liver and spleen are not enlarged. There is no abdominal mass or ascites noted and there is no inguinal adenopathy, Extremities - No edema, Neurologic - No focal neurologic deficits noted. Lab/Imaging: Test performed on Nov 23, 2019 14:57 Ferritin 11 ng/mL Iron 33 mcg/dL Sodium 129 mmol/L Iron Binding Capacity (TIBC) 426 mcg/dl Potassium 4.6 mmol/L % Iron Saturation 7.7 % Chloride 91 mmol/L CO2 27 mmol/L UIBC 393 mcg/dL Anion Gap 15.6 BUN 10 mg/dL Creatinine 1.2 mg/dL Cr Clearance (Est) 49.5200 mL/min eGFR 60.4 mL/min Glucose 86 mg/dL Calcium 9.2 mg/dL Protein, Total 7.1 g/dL Albumin 4.7 g/dL Globulin 2.4 g/dL Bilirubin, Total 0.3 mg/dL ALT (SGPT) 32 U/L AST (SGOT) 35 U/L Alkaline Phosphatase 52 IU/L ESR (Sed Rate) 9 mm/hr WBC 6.3 10 3/uL RBC 4.41 10 6/uL HGB 10.2 g/dL HCT 33.5 % MCV 76.0 fL MCH 23.1 pg MCHC 30.4 g/dL RDW 19.1 % Platelet Count 292 10 3/cmm MPV 9.2 fL Neutrophils 4.2 10 3/uL Lymphocytes 1.2 10 3/uL Monocytes 0.7 10 3/uL Eosinophils 0.0 10 3/uL Basophils 0.1 10 3/uL Neutrophil % 67.8 % Lymphocyte % 19.8 % Monocyte % 11.2 % Eosinophil % 0.2 % Basophils % 0.8 % Impression: 1. Patient with iron deficiency anemia. It appeared to be due to inadequate oral iron absorption. GI blood loss was not completely excluded, but it appeared to be less likely. 2. He has underlying Crohn's disease and irritable bowel syndrome. 3. He also had mild hyponatremia, cause uncertain. 4. He has chronic dry mouth. In the setting of other autoimmune disease, I had wondered about the possibility of Sjogren's syndrome. His other medical illnesses include: 5. Hypertension. 6. Graves disease. 7. Chronic migraine. He began a trial of oral iron supplementation in the latter part of September. He was not able to tolerate a liquid preparation due to diarrhea. He has tolerated the ferrous sulfate with acceptable toxicity, but thus far there has been no significant improvement in the anemia. Plan: As his anemia has not been responding to oral iron supplementation, he will not be given parenteral iron replacement with 2 infusions of Injectafer. I will plan a follow-up visit 1 month after the second infusion. At that point he will have further evaluation for anemia, as indicated. Signed By: Christiano George M.D. <<Signature on File>>
[2019-11-24 14:46] LABS: Anti-Double Strand DNA AB <1 IU/mL; Jo-1 Antibody <1.0 NEG AI (<1.0 NEG); SM/RNP Antibodies <1.0 NEG AI (<1.0 NEG); SS-B/LA IGG <1.0 NEG AI (<1.0 NEG); Scleroderma Ab(Scl-70) Ab <1.0 NEG AI (<1.0 NEG); Ss-A/Ro Igg <1.0 NEG AI (<1.0 NEG)
== END 2019-11-23 14:34 | disposition home or self-care (01) ==
LOC: ONCMED 14:37
PROVIDERS: PCP Nurse Practitioner; Visit Provider Internal Medicine Medical Oncology
DX: D50.9 Iron deficiency anemia, unspecified (principal); E87.1 Hypo-osmolality and hyponatremia; E05.00 Thyrotoxicosis with diffuse goiter without thyrotoxic crisis or storm; K50.90 Crohn's disease, unspecified, without complications; J45.909 Unspecified asthma, uncomplicated; R53.83 Other fatigue; J30.9 Allergic rhinitis, unspecified; I10 Essential (primary) hypertension; G43.909 Migraine, unspecified, not intractable, without status migrainosus; K58.9 Irritable bowel syndrome, unspecified
CPT/HCPCS: 80053; 82728; 83540; 83550; 85025; 85651; 86225; 86235; 96365; 99214; J1439

== ENCOUNTER 2019-11-30 08:05 | Outpatient (CLI) | payer MEDICARE, OTHER, SELFPAY ==
[2019-11-30] MEDS: ferric carboxy (IVPB) 750 MG in sodium chloride 0.9% (100 ml) 100 ML 460 MG IV (08:50)
== END 2019-11-30 08:06 | disposition home or self-care (01) ==
LOC: ONCMED 08:08
PROVIDERS: PCP Nurse Practitioner; Visit Provider Internal Medicine Medical Oncology
DX: D50.9 Iron deficiency anemia, unspecified (principal)
CPT/HCPCS: 96365; J1439

== ENCOUNTER 2020-01-03 12:58 | Outpatient (CLI) | payer MEDICARE, OTHER, SELFPAY ==
[2020-01-03 13:57] LABS: Basophils # 0.1 10^3/uL (0.0-0.1); Basophils % 1.3 %; Eosinophils # 0.3 10^3/uL (0.0-0.8); Eosinophils % 5.7 %; Hematocrit 41.7 % (42.0-52.0); Hemoglobin 13.7 g/dL (11.7-16.6); Lymphocytes # 1.2 10^3/uL (0.8-4.8); Lymphocytes % 22.5 %; Mean Corpuscular HGB Conc 32.9 g/dL (30.0-36.0); Mean Corpuscular Hemoglobin 27.9 pg (28.0-34.0); Mean Corpuscular Volume 84.9 fL (80-94); Mean Platelet Volume 9.3 fL (7.4-10.4); Monocytes # 0.6 10^3/uL (0.2-0.9); Monocytes % 11.5 %; Neutrophils # 3.21 10^3/uL (1.8-7.7); Neutrophils % 58.6 %; Nucleated Red Blood Cells % 0 %; Platelet Count 190 10^3/cmm (130-400); Red Blood Count 4.91 10^6/uL (4.1-5.3); Red Cell Distribution Width 23.9 % (12.1-15.1); White Blood Count 5.5 10^3/uL (4.0-10.0)
[2020-01-03 14:23] LABS: Alanine Aminotransferase 24 U/L (0-41); Albumin Level 4.3 g/dL (3.5-5.2); Alkaline Phosphatase 73 IU/L (40-130); Anion Gap 12.5 (5-19); Aspartate Amino Transferase 29 U/L (0-40); Blood Urea Nitrogen 11 mg/dL (8-23); Carbon Dioxide 29 mmol/L (22-29); Chloride 97 mmol/L (98-107); Ferritin 408 ng/mL (30-400); Globulin 2.5 g/dL (1.3-4.6); Glomerular Filtration Rate 84.2 mL/min (90-130); Glucose 80 mg/dL (65-115); Iron 106 ug/dL (59-158); Osmolality Calculated 275 mOsm/kg (285-295); Percent Saturation 55.7 % (20-50); Potassium 3.5 mmol/L (3.5-5.1); Sodium 135 mmol/L (136-145); Total Bilirubin 0.2 mg/dL (0.15-1.2); Total Iron Binding Capacity 190 mcg/dl; Total Protein 6.8 g/dL (6.6-8.7); Unsaturated Iron Binding 84 ug/dL (112-347)
--- NOTE | 2020-01-08 15:20 | ONC FU_ITS ---
[facility] Patient Note Patient: Christiano Swartz Unit #: [id number]: 1950 Dictated By: Zechariah LentzDate of Visit: Jan 03, 2020 Onc MED Follow-Up/Prog Note Chief Complaint: Anemia. History of Present Illness: Mr Swartz is a 69 year-old man with iron deficiency anemia. This patient has multiple medical illnesses including hypertension, Graves' disease, Crohn's disease, irritable bowel syndrome, and chronic migraine. He has had most of his medical care with physicians in [place], but that has recently been curtailed due to the coronavirus pandemic. He had seen Gennaro Rosales on 09/23/2019 to establish primary care locally. He reported a 2-week history of increased weakness/fatigue. He was found to be significantly anemic with hemoglobin 9.2 g and hematocrit 29.6%. The red cell indices were hypochromic/microcytic. White blood cell count was normal at 5900 and the platelet count was normal at 254,000. His comprehensive metabolic profile showed mild hyponatremia with sodium 127 mmol/L. Renal function was borderline with BUN 10 and creatinine 1.2 mg/dL. Bilirubin and liver enzymes were normal. The serum iron was low at 12 mcg/dL with transferrin saturation 2.7%. B12 was normal at 610 pg/mL. His stool Hemoccult was negative x 3. Dr George had initially seen him on 10/18/2019. With his laboratory studies clearly consistent with iron deficiency, he initially was recommended to just have a trial of oral iron supplementation. He was seen for a follow-up visit. He indicated he had first tried a liquid iron preparation, which caused significant diarrhea. He then changed to ferrous sulfate, which he has been able to tolerate with acceptable toxicity. In November 2019 he received Injectafer on November 23, 2019 and again on November 30, 2019. His hemoglobin at the time of the first dose of Injectafer was 10.2 and his iron saturation was 7.7%. He is here today for follow-up and review of recent labs. He states overall he is feeling tired and fatigued. He states that he thinks the iron did not work as well as he had hoped. He states he just draggy. He is very talkative today. He denies any fever or chills. He has had no cough. He denies sore throat. He states overall he feels good other than just being really tired. His ECOG is 1. Past Medical History: Chronic migraine Crohn's disease Graves disease Hypertension Irritable bowel syndrome Past Surgical History: Back surgery x2 Subtotal thyroidectomy and radioactive iodine ablation Allergies: morphine and Penicillin. Medications: Atenolol 3 Tablet (of 50 mg) Oral daily Budesonide 3 Capsule (of 3 mg) Capsule Delayed Release Particles Oral daily [id number]-CJCZ-Ldcp-Cod 1 Capsule (of 81-458-09-30 mg) Oral q 4 hours PRN Cyclobenzaprine HCl 1 Tablet (of 10 mg) Oral t.i.d. PRN diazePAM 1 Tablet (of 5 mg) Oral t.i.d. PRN Diphenoxylate-Atropine 1 Tablet (of 2.5-0.025 mg) Oral daily PRN Enalapril Maleate 1 Tablet (of 20 mg) Oral daily PRN EQL Fluticasone Propionate 1 [place](s) (of 50 mcg/act) Suspension Nasal daily HYDROcodone-Acetaminophen 1 Tablet (of 10-325 mg) Oral q 4 hours PRN hydrOXYzine HCl 1 Tablet (of 25 mg) Oral t.i.d. PRN predniSONE 1 Tablet (of 10 mg) Oral daily ProAir HFA 2 Puff(s) (of 108 (90 base) mcg/act) Aerosol, solution Inhalation PRN sulfaSALAzine 2 Tablet (of 500 mg) Oral daily SUMAtriptan Succinate 1 Tablet (of 100 mg) Oral daily PRN tiZANidine HCl 2 Tablet (of 4 mg) Oral four times a day PRN Zofran ODT 1 Tablet (of 4 mg) Tablet Dispersable Oral q 4 hours Family History: Mr. Diallos mother at age 62: heart attack, and heart disease, and diabetes. Mr. Swartz's father at age 92: dementia. Mr. Swartz has 3 brothers: 2 alive, 1 . Mr. Swartz's first brother's heart disease. Another brother's heart disease. Another brother's alzheimers. He has 2 sisters: 2 alive. Mr. Swartz's first sister's heart disease. Father with dementia in his early 90s. Mother had diabetes and of heart attack at age 62. Her whole family apparently had heart problems. A brother in his 60s with fast pace dementia . Another brother has coronary artery disease and one has been treated for cardiac arrhythmia. A sister also has heart disease. Another sister is in good health. Social History: Mr. Swartz is and he is an unknown. Mr. Swartz has never smoked. He has no history of drinking. He is a non-smoker. He had heavy alcohol use for period of 4 to 5 years, but he quit drinking more than 30 years ago. Review Of Symptoms: Constitutional Denies fevers, chills, night sweats or weight loss. Has mild to moderate fatigue. Allergic/Immunologic No reactions. Eyes Denies significant visual changes. No diplopia. No amaurosis. ENMT Denies changes in hearing, sore throat, mouth sores, difficulty or changes in swallowing ability, and/or sinus drainage. Hematologic/Lymphatic Denies easy bruising or bleeding. The patient denies any tender or palpable lymph nodes. Respiratory Denies dyspnea on exertion, chest pain, cough or hemoptysis. Denies orthopnea. Cardiovascular Denies anginal chest pain, palpitations or orthopnea. Gastrointestinal Denies nausea, vomiting, diarrhea, GI bleeding, or constipation. Denies change in bowel habits and/or stool color, no heartburn or early satiety. Genitourinary (M) Denies hematuria, dysuria, increased frequency, urgency, hesitancy or incontinence. Musculoskeletal Denies joint pain, swelling or redness. No decreased range of motion. Integumentary Denies chronic rashes, inflammation, ulcerations or skin changes. Neurologic Denies headache, blurred vision, and no areas of focal weakness or numbness. Normal gait. No sensory problems. Psychiatric Denies insomnia, depression, tsering or mood swings. Vital Signs: Performed on Jan 03, 2020 14:44 Height - 64.00 in Weight - 127.0 lbs (LOW) BSA - 1.61 sq.m BMI - 21.80 Temperature - 98.5 F Pulse - 71 /min Respiration - 18 /min BP - 129/87 mm(hg) O2 Sat - 99 % Pain - 4,1 - No physically strenuous activity, but ambulatory and able to carry out light or sedentary work (e.g. office work, light house work). (ECOG) Physical Examination: Constitutional Alert, oriented, no acute distress. Skin pink, warm and dry. Head Normocephalic; atraumatic. Eyes Conjunctivae and sclerae are clear and without icterus. Pupils are reactive and equal. Neck Supple without masses or thyromegaly. No jugular venous distension. Hematologic/Lymphatic No petechiae or purpura. Respiratory Lungs are clear to auscultation without rhonchi or wheezing. Cardiovascular Regular rate and rhythm of heart without murmurs,clicks, gallops or rubs. Abdomen Non-tender, non-distended, no masses or ascites. Back/Spine Non-tender to palpation. Extremities No visible deformities, no cyanosis, clubbing or edema. Musculoskeletal No tenderness or swelling, normal range of motion without obvious weakness. Integumentary No rashes or lesions. Neurologic No sensory or motor deficits, normal cerebellar function, normal gait. Psychiatric Alert and oriented times three. Coherent speech. Verbalizes understanding of our discussions today. Laboratory:Test performed on Jan 03, 2020 13:17 Ferritin 408 ng/mL Iron 106 mcg/dL Sodium 135 mmol/L Iron Binding Capacity (TIBC) 190 mcg/dl Potassium 3.5 mmol/L % Iron Saturation 55.7 % Chloride 97 mmol/L CO2 29 mmol/L UIBC 84 mcg/dL Anion Gap 12.5 BUN 11 mg/dL Creatinine 0.9 mg/dL Cr Clearance (Est) 64.9000 mL/min eGFR 84.2 mL/min Glucose 80 mg/dL Calcium 8.0 mg/dL Protein, Total 6.8 g/dL Albumin 4.3 g/dL Globulin 2.5 g/dL Bilirubin, Total 0.2 mg/dL ALT (SGPT) 24 U/L AST (SGOT) 29 U/L Alkaline Phosphatase 73 IU/L WBC 5.5 10 3/uL RBC 4.91 10 6/uL HGB 13.7 g/dL HCT 41.7 % MCV 84.9 fL MCH 27.9 pg MCHC 32.9 g/dL RDW 23.9 % Platelet Count 190 10 3/cmm MPV 9.3 fL Neutrophils 3.21 10 3/uL Lymphocytes 1.2 10 3/uL Monocytes 0.6 10 3/uL Eosinophils 0.3 10 3/uL Basophils 0.1 10 3/uL Neutrophil % 58.6 % Lymphocyte % 22.5 % Monocyte % 11.5 % Eosinophil % 5.7 % Basophils % 1.3 % NRBC % 0 % Test performed on Nov 23, 2019 14:57 ESR (Sed Rate) 9 mm/hr Impression: 1. Patient with iron deficiency anemia. It appeared to be due to inadequate oral iron absorption. GI blood loss was not completely excluded, but it appeared to be less likely. 2. He has underlying Crohn's disease and irritable bowel syndrome. 3. He also had mild hyponatremia, cause uncertain. 4. He has chronic dry mouth. In the setting of other autoimmune disease, I had wondered about the possibility of Sjogren's syndrome. His other medical illnesses include: 5. Hypertension. 6. Graves disease. 7. Chronic migraine. He began a trial of oral iron supplementation in the latter part of September. He was not able to tolerate a liquid preparation due to diarrhea. He has tolerated the ferrous sulfate with acceptable toxicity, but thus far there has been no significant improvement in the anemia. He underwent peripheral iron replacement with Injectafer on November 22 and November 30, 2019. He is here today for followup. Plan: 1. Labs from today were reviewed in detail and discussed with & Mrs Swartz and a copy was given to them. 2. WBC 5.5, hemoglobin 13.7, platelets 190,000 ANC is 3200. Creatinine 0.9 LFTs are normal. Iron saturation today is reported at 55.7% with a ferritin reported at 408. 3. Mr. Ortega was encouraged that his labs are dramatically better. We will plan to repeat his follow-up visit and repeat CBC CMP and iron studies in 6 weeks. 4. Mr. Ortega instructed to contact us in the interim should questions or problems arise. 5. We discussed at length possible reasons why he could be tired. He states that he has not been doing much activity at all and will gradually increase his activity. He states he did walk around the yard a little bit a couple days ago and felt better. Signed By: Zechariah Lentz-, [facility] Christiano George MD <<Signature on File>>
== END 2020-01-03 12:59 | disposition home or self-care (01) ==
LOC: ONCMED 13:04
PROVIDERS: PCP Nurse Practitioner; Visit Provider Nurse Practitioner
DX: D50.9 Iron deficiency anemia, unspecified (principal); K50.90 Crohn's disease, unspecified, without complications; E87.1 Hypo-osmolality and hyponatremia; R68.2 Dry mouth, unspecified; I10 Essential (primary) hypertension; E05.00 Thyrotoxicosis with diffuse goiter without thyrotoxic crisis or storm; G43.709 Chronic migraine without aura, not intractable, without status migrainosus
CPT/HCPCS: 36415; 80053; 82728; 83540; 83550; 85025; 99214

== ENCOUNTER 2020-02-15 14:09 | Outpatient (CLI) | payer MEDICARE, OTHER, SELFPAY ==
[2020-02-15 14:42] LABS: Basophils # 0.1 10^3/uL (0.0-0.1); Basophils % 1.6 %; Eosinophils # 0.3 10^3/uL (0.0-0.8); Eosinophils % 6.1 %; Hematocrit 41.4 % (42.0-52.0); Hemoglobin 13.7 g/dL (11.7-16.6); Lymphocytes # 0.9 10^3/uL (0.8-4.8); Lymphocytes % 21.9 %; Mean Corpuscular HGB Conc 33.1 g/dL (30.0-36.0); Mean Corpuscular Hemoglobin 30.1 pg (28.0-34.0); Mean Platelet Volume 9.4 fL (7.4-10.4); Monocytes # 0.6 10^3/uL (0.2-0.9); Monocytes % 13.9 %; Neutrophils # 2.39 10^3/uL (1.8-7.7); Neutrophils % 56.3 %; Nucleated Red Blood Cells % 0 %; Platelet Count 160 10^3/cmm (130-400); Red Blood Count 4.55 10^6/uL (4.1-5.3); Red Cell Distribution Width 17.5 % (12.1-15.1); White Blood Count 4.3 10^3/uL (4.0-10.0)
[2020-02-15 14:51] LABS: Alanine Aminotransferase 26 U/L (0-41); Albumin Level 4.2 g/dL (3.5-5.2); Alkaline Phosphatase 87 IU/L (40-130); Anion Gap 9.4 (5-19); Aspartate Amino Transferase 28 U/L (0-40); Blood Urea Nitrogen 8 mg/dL (8-23); Calcium 7.8 mg/dL (8.5-10.5); Carbon Dioxide 30 mmol/L (22-29); Chloride 98 mmol/L (98-107); Ferritin 406 ng/mL (30-400); Globulin 2.5 g/dL (1.3-4.6); Glomerular Filtration Rate 84.2 mL/min (90-130); Glucose 100 mg/dL (65-115); Iron 95 ug/dL (59-158); Osmolality Calculated 274 mOsm/kg (285-295); Percent Saturation 49.2 % (20-50); Potassium 3.4 mmol/L (3.5-5.1); Sodium 134 mmol/L (136-145); Total Bilirubin 0.2 mg/dL (0.15-1.2); Total Iron Binding Capacity 193 mcg/dl; Total Protein 6.7 g/dL (6.6-8.7); Unsaturated Iron Binding 98 ug/dL (112-347)
--- NOTE | 2020-02-18 07:49 | ONC FU_ITS ---
Dr. George Patient Follow-Up Note Patient: Christiano Swartz Unit #: [id number]: 1950 Dicatated By: Christiano George M.D.Date of Visit:Feb 15, 2020 Onc Med Follow-up/Prog Note Chief Complaint: Anemia. History of Present Illness: This is a 69 year-old man with iron deficiency anemia. This patient has multiple medical illnesses including hypertension, Graves' disease, Crohn's disease, irritable bowel syndrome, and chronic migraine. He has had most of his medical care with physicians in [place], but that has recently been curtailed due to the coronavirus pandemic. He had seen Gennaro Rosales on 09/23/2019 to establish primary care locally. He reported a 2-week history of increased weakness/fatigue. He was found to be significantly anemic with hemoglobin 9.2 g and hematocrit 29.6%. The red cell indices were hypochromic/microcytic. White blood cell count was normal at 5900 and the platelet count was normal at 254,000. His comprehensive metabolic profile showed mild hyponatremia with sodium 127 mmol/L. Renal function was borderline with BUN 10 and creatinine 1.2 mg/dL. Bilirubin and liver enzymes were normal. The serum iron was low at 12 mcg/dL with transferrin saturation 2.7%. B12 was normal at 610 pg/mL. His stool Hemoccult was negative x 3. I had initially seen him on 10/18/2019. With his laboratory studies clearly consistent with iron deficiency, he initially was recommended to just have a trial of oral iron supplementation. As of his followup visit on 11/23/2019 his hemoglobin remained low at 10.2 g with transferrin saturation 7.7% and ferritin 11 ng/mL, consistent with iro deficiency. As he was not showing response to oral iron, he was given parenteral iron replacement with 2 infusions of Injectafer. He is seen for a follow-up visit. He has been feeling much better since completing the IV iron. He has improved energy and activity tolerance. His ECOG score is 1. His appetite is also better. He has no fever or night sweats. His breathing is pretty good. He has not had cough and he does not complain of chest pain. His Crohn's disease/IBS has been better controlled lately. He has no complaints. He has been having pain behind his left knee. His neck bothers him occasionally. He continues to have migraine headaches daily. He has no focal neurologic symptoms. Medications: Atenolol 3 Tablet (of 50 mg) Oral daily, Budesonide 3 Capsule (of 3 mg) Capsule Delayed Release Particles Oral daily, Tzowonzkme-AMVI-Dwcw-Cod 1 Capsule (of 67-246-43-30 mg) Oral q 4 hours PRN, Cyclobenzaprine HCl 1 Tablet (of 10 mg) Oral t.i.d. PRN, diazePAM 1 Tablet (of 5 mg) Oral t.i.d. PRN, Diphenoxylate-Atropine 1 Tablet (of 2.5-0.025 mg) Oral daily PRN, Enalapril Maleate 1 Tablet (of 20 mg) Oral daily PRN, EQL Fluticasone Propionate 1 Jefferson(s) (of 50 mcg/act) Suspension Nasal daily, HYDROcodone-Acetaminophen 1 Tablet (of 10-325 mg) Oral q 4 hours PRN, hydrOXYzine HCl 1 Tablet (of 25 mg) Oral t.i.d. PRN, predniSONE 1 Tablet (of 10 mg) Oral daily, ProAir HFA 2 Puff(s) (of 108 (90 base) mcg/act) Aerosol, solution Inhalation PRN, sulfaSALAzine 2 Tablet (of 500 mg) Oral daily, SUMAtriptan Succinate 1 Tablet (of 100 mg) Oral daily PRN, tiZANidine HCl 2 Tablet (of 4 mg) Oral four times a day PRN, Zofran ODT 1 Tablet (of 4 mg) Tablet Dispersable Oral q 4 hours Allergies: morphine and Penicillin. Review of Systems: Constitutional - His energy is a lot better. He has been doing alot of traveling recently. He is able to do light work around the house. His appetite has also improved and his weight is up a few pounds. No fever, night sweats, or hot flashes. ECOG score is 1, ENMT - He has chronic sinus congestion/drainage. No mouth sores. No sore throat or difficulty swallowing, Hematologic/Lymphatic - No abnormal bruising or bleeding, Respiratory - No shortness of breath. No cough. No pleuritic pain or hemoptysis, Cardiovascular - No angina pain. No palpitations, Gastrointestinal - No nausea or vomiting. No heartburn or acid reflux. He has Crohn's, and IBS. It is adequately managed. His bowel pattern has improved. No blood in the stool or black stools, Genitourinary (M) - No dysuria or hematuria. No urinary frequency. No urgency or incontinence, Musculoskeletal - He has recently been having pain behind his left knee, Integumentary - No skin complications, Neurologic - He has migraine headaches on a daily basis. He is seeing his neurologist, Dr. Tubbs for this. No dizziness. No numbness or tingling. No other focal neurologic symptoms, Psychiatric - No anxiety or depression. No insomnia. Vital Signs: Performed on Feb 15, 2020 15:49 Height - 64.00 in Weight - 129.0 lbs (HIGH) BSA - 1.62 sq.m BMI - 22.14 Temperature - 98.6 F Pulse - 89 /min Respiration - 20 /min BP - 184/105 mm(hg) (HIGH) O2 Sat - 97 % Pain - 9 Physical Examination: Constitutional - He looks pretty good generally, Eyes - Sclerae nonicteric. Conjunctivae clear, ENMT - No lesions noted in the oral cavity, Hematologic/Lymphatic - No cervical, clavicular, or axillary adenopathy, Respiratory - Lungs sound clear, Cardiovascular - Heart rhythm is regular. There is no murmur, gallop, or rub noted, Abdomen - Soft. Liver and spleen are not enlarged. There is no abdominal mass or ascites noted and there is no inguinal adenopathy, Extremities - No edema, Neurologic - No focal neurologic deficits noted. Lab/Imaging: Test performed on Feb 15, 2020 14:23 Ferritin 406 ng/mL Iron 95 mcg/dL Sodium 134 mmol/L Iron Binding Capacity (TIBC) 193 mcg/dl Potassium 3.4 mmol/L % Iron Saturation 49.2 % Chloride 98 mmol/L CO2 30 mmol/L UIBC 98 mcg/dL Anion Gap 9.4 BUN 8 mg/dL Creatinine 0.9 mg/dL Cr Clearance (Est) 65.92 mL/min eGFR 84.2 mL/min Glucose 100 mg/dL Calcium 7.8 mg/dL Protein, Total 6.7 g/dL Albumin 4.2 g/dL Globulin 2.5 g/dL Bilirubin, Total 0.2 mg/dL ALT (SGPT) 26 U/L AST (SGOT) 28 U/L Alkaline Phosphatase 87 IU/L WBC 4.3 10 3/uL RBC 4.55 10 6/uL HGB 13.7 g/dL HCT 41.4 % MCV 91.0 fL MCH 30.1 pg MCHC 33.1 g/dL RDW 17.5 % Platelet Count 160 10 3/cmm MPV 9.4 fL Neutrophils 2.39 10 3/uL Lymphocytes 0.9 10 3/uL Monocytes 0.6 10 3/uL Eosinophils 0.3 10 3/uL Basophils 0.1 10 3/uL Neutrophil % 56.3 % Lymphocyte % 21.9 % Monocyte % 13.9 % Eosinophil % 6.1 % Basophils % 1.6 % NRBC % 0 % Impression: 1. Patient with iron deficiency anemia. It appeared to be due to inadequate oral iron absorption. GI blood loss was not completely excluded, but it appeared to be less likely. 2. He has underlying Crohn's disease and irritable bowel syndrome. 3. He also had mild hyponatremia, cause uncertain. 4. He has chronic dry mouth. In the setting of other autoimmune disease, I had wondered about the possibility of Sjogren's syndrome. His other medical illnesses include: 5. Hypertension. 6. Graves disease. 7. Chronic migraine. He began a trial of oral iron supplementation in the latter part of September. As of November 2019 he remained mildly anemic with transferrin saturation and serum ferritin consistent with iron deficiency. He was then given parenteral iron replacement with 2 infusions of Injectafer, which he tolerated well. He has had a very good clinical response. Plan: He can now be managed expectantly. He will continue his regular followup with Gennaro Rosales. I will see him again as needed. Signed By: Christiano George M.D. <<Signature on File>>
== END 2020-02-15 14:10 | disposition home or self-care (01) ==
LOC: ONCMED 14:13
PROVIDERS: PCP Nurse Practitioner; Visit Provider Internal Medicine Medical Oncology
DX: D50.9 Iron deficiency anemia, unspecified (principal); K50.90 Crohn's disease, unspecified, without complications; E87.1 Hypo-osmolality and hyponatremia; R68.2 Dry mouth, unspecified; I10 Essential (primary) hypertension; E05.00 Thyrotoxicosis with diffuse goiter without thyrotoxic crisis or storm; G43.709 Chronic migraine without aura, not intractable, without status migrainosus
CPT/HCPCS: 80053; 82728; 83540; 83550; 85025; G0463